=== PATIENT | female | born 1975 | race American Indian/Alaskan Native ===

== ENCOUNTER 2017-03-13 10:22 | Day surgery (SDC) | payer OTHER ==
[~2017-03-13 10:22] MED LIST: DILAUDID IV PRN
[2017-03-13] MEDS ORDERED: REGLAN PO NR (11:00)
[2017-03-13] MEDS ORDERED: PEPCID PO NR (11:00)
[2017-03-13] MEDS ORDERED: NACL 0.9% 1000 ML 1,000 ML IV SCH (11:00)
[2017-03-13] MEDS ORDERED: VERSED IV NR (11:00)
--- NOTE | 2017-03-13 11:12 | Short Stay Summary ---
Short Stay Documentation Date of service: 03/13/17 Narrative H&P: Pt is a 41yo BF LMP 02/21/17 presents for surgical evaluation and treatment of a complex left ovarian cyst. Pelvic u/s showed an enlarged uterus with small fibroids and a multi-loculated cyst on the left ovary 4 x 3cm. CEA - 1.7 and CA125 - 61 (elevated). She is therefore scheduled for a Laproscopic left ovarian cystectomy with possible left Oophorectomy. - History Principal diagnosis: Left ovarian cyst H&P: obtained from office Past Medical History: other (asthma) Past Surgical History: Other (myomectomy) Social history: no significant social history, single - Allergies and Medications Current Medications: Allergies No Known Allergies Allergy (Unverified 03/10/17 15:24) Home Medications Medication Instructions Recorded Confirmed Last Taken Type ALBUTEROL Inhaler [Proair] 2 puff IH QID PRN 03/10/17 03/10/17 Unknown History Cetirizine HCl [ZyrTEC] 10 mg PO PRN PRN 03/10/17 03/10/17 Unknown History Fexofenadine HCl [[place] Allergy] 180 mg PO PRN PRN 03/10/17 03/10/17 Unknown History Fluticasone (Nf) [Flovent Hfa(Nf)] 2 puff IH BID PRN 03/10/17 03/10/17 Unknown History Active Medications Famotidine (Pepcid) 20 mg PO PREOP NR Stop: 03/13/17 15:00 Hydromorphone HCl (Dilaudid) 0.5 mg IV Q10MIN PRN PRN Reason: Pain , Severe (7-10) Stop: 03/13/17 15:00 Sodium Chloride (Nacl 0.9% 1000 Ml) 1,000 mls @ 75 mls/hr IV DIRECT YULI Metoclopramide HCl (Reglan) 10 mg PO PREOP NR Stop: 03/13/17 15:00 Midazolam HCl (Versed) 2 mg IV PREOP NR Stop: 03/13/17 23:59 - Physical exam General appearance: no acute distress Integumentary: no rash HEENT: Atraumatic Lungs: Clear to auscultation Breasts: deferred Heart: Regular rate Gastrointestinal: normal Female Genitourinary: deferred Rectal Exam: deferred Extremities: no ischemia, No edema Neurological: Normal gait - Brief post op/procedure progress note Date of procedure: 03/13/17 Pre-op diagnosis: Complex left ovarian cyst Post-op diagnosis: same (2. Pelvic adhesions) Procedure: 1. Laproscopic left ovarian cystectomy/Cyst aspiration 2. Lysis of pelvic adhesions Anesthesia: GETA Findings: An enlarged uterus with an enlarged left ovarian cystic mass encased in adhesions. Right tube or ovary not visualized. Tortuous left fallopian tube. Bloody ovarian fluid. Surgeon: KARISHMA AG Estimated blood loss: minimal Pathology: none Condition: stable - Hospital course Hospital course: Unremarkable. - Disposition Condition at discharge: Good Disposition: DC-01 TO HOME OR SELFCARE Short Stay Discharge Plan Activity: no restrictions Diet: regular Wound: open to air, keep clean and dry Follow up with: CHARO ELIAS JR, MD [Primary Care Provider] - 7 Days KARISHMA AG MD [Staff Physician] - 14 Days Prescriptions: HYDROcodone/APAP 5-325 [[place] 5/325] 1 each PO Q6HR PRN #30 tablet PRN Reason: Pain
[2017-03-13] MEDS ORDERED: DIPRIVAN 10 MG/ML IV ONE (11:13)
[2017-03-13] MEDS ORDERED: DILAUDID ONE (11:13)
--- NOTE | 2017-03-13 11:20 | Anesthesia Day of Surgery ---
Anesthesia Day of Surgery - Day of Surgery Patient Examined: Yes Patient H&P Reviewed: Yes Patient is NPO: Yes
--- NOTE | 2017-03-13 11:20 | Anesthesia Consultation ---
Anesthesia Consult and Med Hx Date of service: 03/13/17 - Airway Anesthetic Teeth Evaluation: Good ROM Head & Neck: Adequate Mental/Hyoid Distance: Adequate Mallampati Class: Class I Intubation Access Assessment: Good - Pulmonary Exam CTA: Yes - Cardiac Exam Cardiac Exam: RRR - Pre-Operative Health Status ASA Pre-Surgery Classification: ASA2 Proposed Anesthetic Plan: General - Pulmonary Hx Asthma: Yes (last used inhaler 01/2017) - Central Nervous System Hx Psychiatric Problems: No - Other Systems Hx Alcohol Use: Yes (occas) Hx Cancer: No
--- NOTE | 2017-03-13 11:21 | Post Anesthesia Evaluation ---
- Post Anesthesia Evaluation Patient Participated: Yes Airway Patent: Yes Stable Respiratory Function: Yes Temp > 96.8F: Yes Pain Manageable: Yes Adequeate Hydration: Yes Anesthesia Complications: No
[2017-03-13] MEDS ORDERED: ANCEF/STERILE WATER 2 GM/20 ML 2 GM/20 ML SYRINGE IV NR (12:00)
[2017-03-13 12:03] LABS: Hematocrit 34.4 % (30.3-42.9); Hemoglobin 11.7 gm/dl (10.1-14.3); Mean Corpuscular HGB Conc 34 % (30-34); Mean Corpuscular Hemoglobin 29 pg (28-32); Mean Corpuscular Volume 86 fl (79-97); Platelet Count 265 K/mm3 (140-440); Red Blood Count 4.01 M/mm3 (3.65-5.03); Red Cell Distribution Width 13.9 % (13.2-15.2); White Blood Count 4.7 K/mm3 (4.5-11.0)
[2017-03-13] MEDS ORDERED: MARCAINE 0.5% 30 ML INFILTRATI ONE (12:12)
[2017-03-13] MEDS ORDERED: XYLOCAINE MPF 2% ONE (13:04)
[2017-03-13] MEDS ORDERED: ZEMURON IV ONE (13:04)
[2017-03-13] MEDS ORDERED: ZOFRAN ONE (13:04)
[2017-03-13] MEDS ORDERED: DECADRON ONE (13:04)
[2017-03-13] MEDS ORDERED: ROBINUL ONE (13:05)
[2017-03-13] MEDS ORDERED: NEOSTIGMINE ONE (13:05)
[2017-03-13] MEDS ORDERED: MARCAINE 0.5% INFILTRATI ONE (13:33)
[2017-03-13] MEDS ORDERED: NACL 0.9% IR ONE ×2 (13:33)
--- NOTE | 2017-03-13 14:42 | Operative Report ---
Operative Report Operative Report: Date of procedure: 03/13/2017 Pre-operative diagnosis: 1. Pelvic pain 2. Complex left ovarian cyst Post-operative diagnosis: Same with pelvic adhesions Procedure name(s): 1. Laparoscopic left ovarian cystectomy/cyst aspiration 2. Lysis of pelvic adhesions Surgeon: Khanh Vee MD Political Reporter: None Anesthesia: Gen. endotracheal intubation by Dr. Eugene EBL: Less than 50 mL Findings: An enlarged uterus with an enlarged left ovarian mass encased with adhesions. Tortuous left fallopian tube. Right tube and ovary not visible. Procedure: After the patient was correctly identified, she was prepped and draped in usual sterile fashion and placed in dorsolithotomy position. First the bladder was emptied using a straight catheter. Next the speculum was placed in the vaginal vault and the anterior lip of the cervix was grasped using a single-tooth tenaculum. The uterine manipulator was then placed and the tenaculum and speculum were removed. Attention was then turned to the abdomen where first the periumbilical incision was made using a skin knife, and the Optiview trocar was inserted under direct visualization. The incision was made through a previously placed mesh. After an adequate amount of abdominal insufflation, visualization of the pelvic organs found the uterus to be enlarged with an enlarged left ovarian mass that was encased with adhesions. The right tube and ovary was not visible, and the left fallopian tube was tortuous and also encased with the left ovarian mass. A suprapubic incision in the left lateral incision was made through which 5 mm trochars were placed in order to aid in manipulation of the pelvic organs. The adhesions were taken down using both sharp and blunt dissection, but while doing the procedure the left ovarian cyst ruptured yielding bloody fluid. The cyst wall could not be excised. Copious amounts of irrigation was then performed, and good hemostasis was assured after the Tisseel placement. At this point the procedure was considered complete. All instruments removed from the abdomen, the abdomen was deflated, and the periumbilical incision was closed using 0 Vicryl suture in a [id number] configuration of the fascia followed by 4 Monocryl suture in subcuticular fashion on the skin. The suprapubic and left lateral incisions were closed in similar fashion. Each incision was infiltrated using 0.5% Marcaine solution. The uterine manipulator was removed, the patient tolerated the procedure well and was transferred to recovery in stable condition.
--- NOTE | 2017-03-13 14:51 | Post Anesthesia Evaluation ---
- Post Anesthesia Evaluation Patient Participated: Yes Airway Patent: Yes Stable Respiratory Function: Yes Temp > 96.8F: Yes Pain Manageable: Yes Adequeate Hydration: Yes Anesthesia Complications: No
[2017-03-13] MEDS ORDERED: NORCO 5/325 PO SCH (16:00)
[2017-03-13 18:04] VITALS: BP 116/78
== END 2017-03-13 17:58 | disposition home or self-care (01) ==
LOC: OR 10:22
PROVIDERS: ATTEND Obstetrics & Gynecology
DX: N83.202 Unspecified ovarian cyst, left side (principal); Q50.6 Other congenital malformations of fallopian tube and broad ligament; J45.909 Unspecified asthma, uncomplicated
CPT/HCPCS: 36415; 58662; 81025; 85027; A4217; C1765; C9250; J0690; J1100; J1170; J2250; J2405; J2704; J2710; J7030